=== PATIENT | female | born 1950 | race Two or more races ===

== ENCOUNTER 2021-04-28 09:00 | Inpatient (IN) | payer OTHER ==
[~2021-04-28] VITALS: Ht 157.5 cm; Wt 93.2 kg
[~2021-04-28 09:00] MED LIST: CLONAZEPAM1 MG PO; DOCUSATE SODIU100 MG PO; PERCOCET 5/3251 TAB PO
[2021-04-28] MEDS ORDERED: ZYRTEC10 MG PO (09:50)
[2021-04-28] MEDS ORDERED: PRILOSEC OTC20 MG (09:51)
[2021-04-28] MEDS ORDERED: SINGULAIR10 MG (09:51)
[2021-04-28] MEDS ORDERED: NORVASC5 MG PO (09:51)
[2021-04-28] MEDS ORDERED: NAPROXEN SODIU550 MG PO (09:54)
[2021-05-01] MEDS ORDERED: OMEPRAZOLE20 MG (08:49)
[2021-05-01] MEDS ORDERED: GABAPENTIN600 MG (08:49)
[2021-05-01] MEDS ORDERED: MECLIZINE HCL12.5 MG (08:50)
[2021-05-01] MEDS ORDERED: DICLOFENAC POTA50 MG (08:50)
[2021-05-01] MEDS ORDERED: NEURONTIN800 MG PO (13:44)
[2021-05-01] MEDS ORDERED: AMOX-CLAV 875-1 EACH PO (13:44)
[2021-05-01] MEDS ORDERED: MEDROLPACK PO (13:44)
[2021-05-01] MEDS ORDERED: PERCOCET 5-3251 EACH PO (13:44)
[2021-05-01] MEDS ORDERED: ZOFRAN8 MG PO (13:44)
[2021-05-01] MEDS ORDERED: COLACE100 MG PO (13:44)
== END 2021-05-02 12:46 | DRG 454 ==
LOC: O/R 05-01 06:52 → SURH 05-01 07:30 → PED 05-01 21:31
PROVIDERS: ADMIT Orthopaedic Surgery Orthopaedic Surgery of the Spine; ATTEND Orthopaedic Surgery Orthopaedic Surgery of the Spine
PROC: 0SG30AJ Fusion of Lumbosacral Joint with Interbody Fusion Device, Posterior Approach, Anterior Column, Open Approach (ICD-10-PCS; 2021-05-01)
PROC: 0SB20ZZ Excision of Lumbar Vertebral Disc, Open Approach (ICD-10-PCS; 2021-05-01)
PROC: 0SB40ZZ Excision of Lumbosacral Disc, Open Approach (ICD-10-PCS; 2021-05-01)
PROC: 009U3ZZ Drainage of Spinal Canal, Percutaneous Approach (ICD-10-PCS; 2021-05-01)
PROC: 0SG30K1 Fusion of Lumbosacral Joint with Nonautologous Tissue Substitute, Posterior Approach, Posterior Column, Open Approach (ICD-10-PCS; principal; 2021-05-01 07:30)
DX: M48.062 Spinal stenosis, lumbar region with neurogenic claudication (principal); M96.0 Pseudarthrosis after fusion or arthrodesis; M48.07 Spinal stenosis, lumbosacral region; M51.17 Intervertebral disc disorders with radiculopathy, lumbosacral region; I10 Essential (primary) hypertension

== ENCOUNTER 2023-03-23 11:15 | Inpatient (IN) | payer OTHER ==
[~2023-03-23] VITALS: Ht 157.5 cm; Wt 93.4 kg
[~2023-03-23 11:15] MED LIST changes: +AMOX-CLAV 875-1 EACH PO; +COLACE100 MG PO; +DICLOFENAC POTA50 MG; +GABAPENTIN600 MG; +MECLIZINE HCL12.5 MG; +MEDROLPACK PO; +NAPROXEN SODIU550 MG PO; +NEURONTIN800 MG PO; +NORVASC5 MG PO; +OMEPRAZOLE20 MG; +PERCOCET 5-3251 EACH PO; +PRILOSEC OTC20 MG; +SINGULAIR10 MG; +ZOFRAN8 MG PO; +ZYRTEC10 MG PO
[2023-03-23] MEDS ORDERED: ANTIVERT PO (13:48)
[2023-03-23] MEDS ORDERED: VITAMIN D PO (13:49)
[2023-03-23] MEDS ORDERED: HORIZANT300 MG PO (13:51)
[2023-03-29] MEDS ORDERED: AMOX-CLAV 875-1 EACH PO (14:36)
[2023-03-29] MEDS ORDERED: ACETAMINOPHEN-1 EAC2 PO (14:36)
[2023-03-29] MEDS ORDERED: MEDROLPACK PO (14:36)
[2023-03-29] MEDS ORDERED: COLACE100 MG PO (14:37)
[2023-03-29] MEDS ORDERED: ZOFRAN8 MG PO (14:37)
[2023-03-29] MEDS ORDERED: GABAPENTIN100 M2 PO (14:37)
[2023-03-29] MEDS ORDERED: NEURONTIN800 MG PO (14:37)
[2023-03-30 07:13] LABS: HEMATOCRIT 33.1 % (36.0-45.00); HEMOGLOBIN 10.6 g/dL (12.0-15.00); MEAN CELL VOLUME 81.1 fL (80.00-100.00); MEAN CORPUSCULAR HGB CONC 32.1 g/dl (32.0-36.0); PLATELET COUNT 256 K/uL (150-450); RED BLOOD COUNT 4.09 M/uL (4.00-6.00); RED CELL DISTRIBUTION WIDTH 14.9 % (11.5-14.5)
[2023-03-30 07:50] LABS: CALCIUM 8.9 mg/dL (8.5-10.1); CREATININE SERUM 0.73 mg/dL (0.55-1.02); GFR 78.81; POTASSIUM 4.17 mEq/L (3.5-5.1)
== END 2023-03-31 12:55 | disposition home health service (06) | DRG 455 ==
LOC: O/R 03-29 06:33 → SURH 03-29 11:15 → O/R 03-29 13:48 → PED 03-29 18:35 → SURH 03-29 21:15 → PED 03-31 12:55
PROVIDERS: ADMIT Orthopaedic Surgery Orthopaedic Surgery of the Spine; ATTEND Orthopaedic Surgery Orthopaedic Surgery of the Spine
PROC: 0SG3071 Fusion of Lumbosacral Joint with Autologous Tissue Substitute, Posterior Approach, Posterior Column, Open Approach (ICD-10-PCS; 2023-03-29)
PROC: 0ST40ZZ Resection of Lumbosacral Disc, Open Approach (ICD-10-PCS; 2023-03-29)
PROC: 0QB30ZZ Excision of Left Pelvic Bone, Open Approach (ICD-10-PCS; 2023-03-29)
PROC: 07DR0ZZ Extraction of Iliac Bone Marrow, Open Approach (ICD-10-PCS; 2023-03-29)
PROC: 4A1104G Monitoring of Peripheral Nervous Electrical Activity, Intraoperative, Open Approach (ICD-10-PCS; 2023-03-29)
PROC: 0SG30A0 Fusion of Lumbosacral Joint with Interbody Fusion Device, Anterior Approach, Anterior Column, Open Approach (ICD-10-PCS; principal; 2023-03-29 21:15)
DX: M48.07 Spinal stenosis, lumbosacral region (principal); M51.37 Other intervertebral disc degeneration, lumbosacral region; M54.17 Radiculopathy, lumbosacral region; I10 Essential (primary) hypertension; M41.56 Other secondary scoliosis, lumbar region

== ENCOUNTER 2025-04-03 07:00 | Day surgery (SDC) | payer OTHER ==
[~2025-04-03] VITALS: Ht 157.5 cm; Wt 84.4 kg
[~2025-04-03 07:00] MED LIST changes: +ACETAMINOPHEN-1 EAC2 PO; +ANTIVERT PO; +GABAPENTIN100 M2 PO; +HORIZANT300 MG PO; +INTESTINEX680 M1 PO; +VITAMIN D PO
[2025-04-03] MEDS ORDERED: VANCOMYCIN HCL 1,000 MG VIAL IV ONE (09:00)
[2025-04-03] MEDS ORDERED: CEFAZOLIN SODIUM 1,000 MG VIAL IV ONE (09:00)
[2025-04-03] MEDS ORDERED: DEXAMETHASONE SODIUM PHOSPHATE 4 MG/ML VIAL IV ONE (09:00)
[2025-04-03] MEDS ORDERED: METHYLPREDNISOLONE SOD SUCC 125 MG VIAL IV ONE (09:00)
[2025-04-03] MEDS ORDERED: VANCOMYCIN HCL 1,000 MG VIAL IR ONE (09:00)
[2025-04-03] MEDS ORDERED: HEMOSTATIC MATRIX WITH THROMBIN KIT TOP ONE (09:00)
[2025-04-03] MEDS ORDERED: LIDOCAINE HCL 1%/EPINEPHRINE 20ML VIAL IJ ONE (09:00)
[2025-04-03] MEDS ORDERED: NEURONTIN800 MG PO (09:48)
[2025-04-03] MEDS ORDERED: TRAM1TAB98 PO (09:48)
[2025-04-03] MEDS ORDERED: MEDROLPACK PO (09:48)
[2025-04-03] MEDS ORDERED: GABAPENTIN100 M2 PO (09:48)
[2025-04-03] MEDS ORDERED: ZOFRAN8 MG PO (09:48)
[2025-04-03] MEDS ORDERED: COLACE100 MG PO (09:48)
[2025-04-03] MEDS ORDERED: AMOX-CLAV 875-1 EACH PO (09:48)
[2025-04-03] MEDS ORDERED: SUGAMMADEX SODIUM 200 MG/2 ML VIAL IV ONE (10:00)
== END 2025-04-03 11:55 | disposition home or self-care (01) ==
LOC: CIR.AMB 07:00
PROVIDERS: ATTEND Orthopaedic Surgery Orthopaedic Surgery of the Spine
DX: M46.1 Sacroiliitis, not elsewhere classified (principal); Z91.041 Radiographic dye allergy status
CPT/HCPCS: 27278; C1776